=== PATIENT | male | born 1955 | race Hispanic/Latino ===

== ENCOUNTER 2019-08-30 11:41 | Emergency (ER) | payer OTHER ==
[2019-08-30] MEDS ORDERED: KETOROLAC TROMETHAMINE 60 MG/2 ML VIAL IV ONE (11:42)
[2019-08-30] MEDS ORDERED: TETANUS/DIPHTHERIA TOXOID [ADULT] 0.5 ML VIAL IM ONE (12:16)
== END 2019-08-30 14:35 | disposition home or self-care (01) ==
LOC: EDH 11:41
DX: T14.8XXA Other injury of unspecified body region, initial encounter (principal); Z87.891 Personal history of nicotine dependence; W54.0XXA Bitten by dog, initial encounter; Y93.89 Activity, other specified; Y92.89 Other specified places as the place of occurrence of the external cause; Y99.8 Other external cause status
CPT/HCPCS: 70450; 70490; 73562 ×2; 90471; 90714; 96372; 99285; J1885

== ENCOUNTER → 2022-04-13 | Outpatient (CLI) | payer OTHER ==
[2022-04-13 12:40] LABS: POTASSIUM 4.3 mmol/L (3.5-5.1)
== END | disposition home or self-care (01) ==
LOC: LAB 08:07
PROVIDERS: ATTEND Student in an Organized Health Care Education/Training Program
DX: R06.00 Dyspnea, unspecified (principal)
CPT/HCPCS: 36415; 80048

== ENCOUNTER → 2022-04-21 | Outpatient (CLI) | payer OTHER ==
[~2022-04-21] MED LIST: DiphenhydrAMINE HCL 50 MG/ML VIAL ONE; IOHEXOL 350 MG/ML 100ML INFUS..BTL IV ONE; MIDAZOLAM HCL 1 MG/ML 2ML VIAL ONE
== END | disposition home or self-care (01) ==
LOC: RAH 09:01
PROVIDERS: ATTEND Student in an Organized Health Care Education/Training Program
DX: I25.10 Atherosclerotic heart disease of native coronary artery without angina pectoris (principal); R07.9 Chest pain, unspecified
CPT/HCPCS: 75574; J1200; J2250; Q9967

== ENCOUNTER 2022-05-12 05:48 | Day surgery (SDC) | payer OTHER ==
[2022-05-10 10:18] LABS: BASOPHILS % (AUTO) 0.6 % (0.0-5.0); EOSINOPHILS % (AUTO) 2.8 % (0.0-8.0); HEMATOCRIT 51.2 % (42-54); LYMPHOCYTES % (AUTO) 35.7 % (21.0-51.0); MEAN CORPUSCULAR HEMOGLOBIN 29.5 pg (27.0-33.0); MEAN CORPUSCULAR HGB CONC 34.8 g/dL (32.0-36.0); MEAN CORPUSCULAR VOLUME 84.8 fL (79-99); MONOCYTES % (AUTO) 8.5 % (3.0-13.0); PLATELET COUNT (AUTO) 182 K/uL (130-400); RED BLOOD CELL COUNT(AUTO) 6.04 MIL/uL (4.50-6.20); RED CELL DISTRIBUTION WIDTH 12.8 % (11.0-15.5); WHITE BLOOD COUNT (AUTO) 7.1 K/uL (4.8-10.8)
[2022-05-10 10:24] LABS: APPEARANCE,URINE CLEAR (CLEAR); BILIRUBIN,URINE NEGATIVE (NEGATIVE); COLOR,URINE YELLOW (YELLOW); GLUCOSE, URINE (UA) NEGATIVE (NEGATIVE); KETONES,URINE NEGATIVE (NEGATIVE); LEUKOCYTE ESTERASE ,URINE NEGATIVE Leu/uL (NEGATIVE); NITRATE,URINE NEGATIVE (NEGATIVE); OCCULT BLOOD,URINE NEGATIVE (NEGATIVE); PH,URINE 5.5 (5.0-8.0); PROTEIN,URINE NEGATIVE (NEGATIVE); UROBILINOGEN,URINE 0.2 mg/dL (0.2-1.0)
[2022-05-10 10:26] LABS: CREATININE 0.9 mg/dL (0.5-1.5); POTASSIUM 4.2 mmol/L (3.5-5.1)
[2022-05-10 10:28] LABS: INR 0.99 (0.85-1.15); PROTHROMBIN TIME 10.8 SEC (9.6-11.6)
[2022-05-10 10:29] LABS: PARTIAL THROMBOPLASTIN TIME 29.9 SEC (26.3-35.5)
[2022-05-11 12:15] VITALS: BP 139/79
[2022-05-12] VITALS (9 sets, daily range): BP systolic 122–152; BP diastolic 81–95
[~2022-05-12] VITALS: Ht 172.7 cm; Wt 112.9 kg
[~2022-05-12 05:48] MED LIST changes: +AEC81 PO; -DiphenhydrAMINE HCL 50 MG/ML VIAL ONE; -IOHEXOL 350 MG/ML 100ML INFUS..BTL IV ONE; -MIDAZOLAM HCL 1 MG/ML 2ML VIAL ONE
[2022-05-12] MEDS ORDERED: 0.9%NACL 1000ML 1,000 ML IV ONE (06:23)
[2022-05-12] MEDS ORDERED: ROSU20TA31 PO (07:04)
[2022-05-12] MEDS ORDERED: NICARDIPINE 25MG INJ IV ONE (07:15)
[2022-05-12] MEDS ORDERED: LIDOCAINE HCL 1% 20 ML VIAL ONE (07:15)
[2022-05-12] MEDS ORDERED: MIDAZOLAM HCL 1 MG/ML 2ML VIAL ONE ×2 (07:16→07:36)
[2022-05-12] MEDS ORDERED: NITROGLYCERIN 50MG VIAL ONE (07:16)
[2022-05-12] MEDS ORDERED: IOHEXOL 350 MG/ML 100ML INFUS..BTL IV ONE (07:16)
[2022-05-12] MEDS ORDERED: FENTANYL CITRATE PF 50 MCG/1 ML 2ML VIAL ONE (07:17)
[2022-05-12] MEDS ORDERED: VERAPAMIL HCL 2.5 MG/ML VIAL ONE (07:42)
[2022-05-12] MEDS ORDERED: DiphenhydrAMINE HCL 50 MG/ML VIAL ONE (07:46)
[2022-05-12] MEDS ORDERED: HEPARIN 10,000 UNIT/10ML (1,000 UNIT/ML) VIAL ONE (07:56)
[2022-05-12] MEDS ORDERED: 0.9%NACL 1000ML 1,000 ML IV SCH (08:30)
[2022-05-12] MEDS ORDERED: GLUCAGON 1MG KIT 1 MG ML IM PRN (08:30)
[2022-05-12] MEDS ORDERED: DEXTROSE 50%-WATER 50 ML DISP.SYRIN IV PRN (08:30)
== END 2022-05-12 12:06 | disposition home or self-care (01) ==
LOC: DAH 05:48
PROVIDERS: ATTEND Student in an Organized Health Care Education/Training Program
DX: R94.39 Abnormal result of other cardiovascular function study (principal); R06.02 Shortness of breath; I20.8 Other forms of angina pectoris; R07.89 Other chest pain; F41.9 Anxiety disorder, unspecified; Z79.01 Long term (current) use of anticoagulants; Z79.82 Long term (current) use of aspirin; Z82.49 Family history of ischemic heart disease and other diseases of the circulatory system; Z79.899 Other long term (current) drug therapy
CPT/HCPCS: 80048; 85025; 85610; 85730; 81003; 36415; 71045; 93005; 93458; 82948 ×2; C1769; C1894; J1200; J3010; J7030; J3490 ×3; J1644 ×2; J2250; Q9967; A4215; A4222; A4221; A4663; A4216; A4606; Q9965 ×2; A4223 ×3; 96360; 96375; 99156; 99157

== ENCOUNTER → 2022-12-13 | Outpatient (CLI) | payer OTHER ==
[~2022-12-13] MED LIST changes: +ROSU20TA31 PO
== END | disposition home or self-care (01) ==
LOC: RAH 10:04
PROVIDERS: ATTEND Internal Medicine
DX: N20.0 Calculus of kidney (principal); N21.0 Calculus in bladder; R31.9 Hematuria, unspecified
CPT/HCPCS: 76770

== ENCOUNTER → 2023-08-02 | Outpatient (CLI) | payer OTHER ==
[~2023-08-02] MED LIST changes: -ROSU20TA31 PO; +ROSU20TA73 PO
== END | disposition home or self-care (01) ==
LOC: RAH 07:19
PROVIDERS: ATTEND Internal Medicine
DX: R74.8 Abnormal levels of other serum enzymes (principal)
CPT/HCPCS: 76700